=== PATIENT | male | born 1985 | race Hispanic/Latino ===

== ENCOUNTER 2018-03-28 09:02 | Emergency (ER) | payer OTHER ==
[2018-03-28] MEDS ORDERED: Lidocaine 1% PF 5 ML VIAL ONE (09:18)
[2018-03-28] MEDS ORDERED: Ketorolac Tromethamine 60 MG/2 ML VIAL ONE (09:18)
[2018-03-28] MEDS ORDERED: cefTRIAXone\\ROCEPHIN 1 GM VIAL ONE (09:18)
--- NOTE | 2018-03-28 20:18 | RAD ---
RIGHT FOREARM TWO VIEWS 03/28/18 Multiple small opaque foreign bodies are seen in the soft tissues of the forearm, mainly anteriorly a nd medially. The patient experienced a sandblast injury and these are small fragments from that. On t he whole, they seem fairly superficial in nature. The underlying radius and ulna appear intact. IMPRESSION: Superficial foreign bodies as noted. POS: HOME
--- NOTE | 2018-03-28 20:46 | CT ---
CT OF THE RIGHT UPPER EXTREMITY: 03/28/[address] of the forearm and lower arm just above the elbow was performed in response to a sand blast injury at work. Axial slices were acquired, then coronal and sagittal reconstructions were done. IMPRESSION: Multiple small opaque pellets are seen in the superficial soft tissues on the anterior aspect of the forearm. Most are very superficial. The deeper ones are in the dermis lying right on top of muscle, b ut none appear to have penetrated muscle. There was no abnormal density within the muscles themselves to suggest a contusion or foreign body. There is some reticulation of the soft tissues in response t o the injury. This study covered an area from the lower arm just above the distal humerus through the proximal wrist. IMPRESSION: Superficial opaque foreign bodies which are largely in the superficial soft tissues, a few slightly d eeper. None appear to have entered the musculature. POS: HOME
== END 2018-03-28 10:52 | disposition home or self-care (01) ==
LOC: BURERS 09:02
DX: S50.852A Superficial foreign body of left forearm, initial encounter (principal); F17.210 Nicotine dependence, cigarettes, uncomplicated; W40.8XXA Explosion of other specified explosive materials, initial encounter; Y92.69 Other specified industrial and construction area as the place of occurrence of the external cause; Y99.0 Civilian activity done for income or pay
CPT/HCPCS: 96372; J0696; J1885; J2001

== ENCOUNTER → 2018-03-29 | Emergency (ER) | payer SELFPAY ==
[~2018-03-29] MED LIST: Ibuprofen 800 MG TAB ONE
== END ==
LOC: BURERS 08:08
DX: T70.4XXA Effects of high-pressure fluids, initial encounter (principal); F17.210 Nicotine dependence, cigarettes, uncomplicated
CPT/HCPCS: 99283

== ENCOUNTER 2021-05-12 15:10 | Emergency (ER) | payer OTHER ==
[2021-05-12] MEDS ORDERED: Ibuprofen 800 MG TAB ONE (15:38)
== END 2021-05-12 15:55 | disposition home or self-care (01) ==
LOC: BURERS 15:10
DX: M70.41 Prepatellar bursitis, right knee (principal); F17.290 Nicotine dependence, other tobacco product, uncomplicated
CPT/HCPCS: 99283